=== PATIENT | male | born 1980 | race Caucasian/White ===

== ENCOUNTER 2020-10-09 00:45 | Emergency (ER) | payer MEDICAID ==
[2020-10-09] MEDS ORDERED: Lidocaine 1% 30 ML SDV INJECT ONE (01:57)
[2020-10-09] MEDS ORDERED: Bacitracin Oint 1 GM U/D Packet TOP ONE (01:58)
--- NOTE | 2020-10-09 02:21 | EDM.PDOC ---
ED HPI GENERAL MEDICAL PROBLEM - General Chief Complaint: Laceration Stated Complaint: RIGHT POINTER FINGER SLICED FINGER Time Seen by Provider: 10/09/20 01:50 Source of Information: Reports: Patient, RN History Limitations: Reports: No Limitations - History of Present Illness INITIAL COMMENTS - FREE TEXT/NARRATIVE: ED with report of laceration to left index finger, cut on Nima jar that broke doing dishes [employer]. Treatments [employer]: Reports: Dressing(s) Right Lower Finger-Index Pain Score (Numeric/FACES): 5 - Related Data Allergies Allergy/AdvReac Type Severity Reaction Status Date / Time benzonatate Allergy Nausea Verified 10/09/20 01:45 [From Tesyun Cardoza] Penicillins Allergy Cannot Verified 10/09/20 01:45 Remember Home Meds: Home Meds ALPRAZolam [Alprazolam] 0.5 mg PO BID PRN 11/04/15 [History] Albuterol [Ventolin HFA] 8 gm INH Q2H PRN 11/04/15 [History] PARoxetine [Paxil] 25 mg PO DAILY 11/04/15 [History] Past Medical History - Past Health History Medical/Surgical History: Denies Medical/Surgical History Other Cardiovascular History: Was seen at clinic 2 weeks ago for same symptoms. Gastrointestinal History: Reports: None Musculoskeletal History: Reports: Fracture, Other (See Below) Other Musculoskeletal History: Foot injury in the past; 2010 Psychiatric History: Reports: Addiction, Anxiety - Infectious Disease History Infectious Disease History: Reports: Chicken Pox - Past Surgical History GI Surgical History: Reports: Hernia Repair/Other Social & Family History - Family History Family Medical History: No Pertinent Family History - Tobacco Use Tobacco Use Status *Q: Current Every Day Tobacco User Years of Tobacco use: 23 Packs/Tins Daily: 0.5 Second Hand Smoke Exposure: Yes - Caffeine Use Caffeine Use: Reports: Coffee, Soda - Recreational Drug Use Recreational Drug Use: Yes Recreational Drug Type: Reports: Benzodiazepines, Marijuana/Hashish Recreational Drug Use Frequency: Daily - Living Situation & Occupation Living situation: Reports: with Significant Other Occupation: Employed ED ROS GENERAL - Review of Systems Review Of Systems: Comprehensive ROS is negative, except as noted in HPI. ED EXAM, SKIN/RASH Exam: See Below Exam Limited By: Language Barrier General Appearance: Alert, Anxious, Mild Distress, Thin Eye Exam: Bilateral Eye: EOMI Ears: Normal External Exam Neck: Full Range of Motion Respiratory/Chest: No Respiratory Distress, Normal Breath Sounds Cardiovascular: Regular Rate, Rhythm Neurological: Alert, Oriented, Normal Cognition Psychiatric: Normal Affect Skin: Wound/Incision (left index finger, distal plalmar surface) ED SKIN PROCEDURES - Laceration/Wound Repair Left Distal Digit - 2nd (Index) Appearance: Superficial, Linear, Clean Distal NVT: Neuro & Vascular Intact Anesthetic Type: Local Local Anesthesia - Lidocaine (Xylocaine): 1% Plain Local Anesthetic Volume: 1cc Skin Prep: Chlorhexidine (Hibiciens) Closed with: Sutures Lac/Wound length In cm: 1 Suture Size: 4-0 # of Sutures: 3 Sterile Dressing Applied: Nurse Tetanus Status Addressed: Yes Complications: No Course - Orders/Labs/Meds Meds: Medications Discontinued Medications Generic Name Dose Route Start Last Admin Trade Name Freq PRN Reason Stop Dose Admin Bacitracin 1 dose 10/09/20 01:58 10/09/20 02:07 Bacitracin Oint 1 Gm TOP 10/09/20 01:59 1 dose ONETIME ONE Administration Lidocaine HCl 30 ml 10/09/20 01:57 10/09/20 02:07 Xylocaine-Mpf 1% INJECT 10/09/20 01:58 30 ml ONETIME ONE Administration Departure - Departure Time of Disposition: 02:18 Disposition: Home, Self-Care 01 Condition: Good Clinical Impression: Laceration - Discharge Information *PRESCRIPTION DRUG MONITORING PROGRAM REVIEWED*: No *COPY OF PRESCRIPTION DRUG MONITORING REPORT IN PATIENT ZOYA: No Instructions: Laceration Care, Adult, [id number] Referrals: PCP,None [Primary Care Provider] - Forms: ED Department Discharge Additional Instructions: keep clean and dry, covered with dressing tylenol 650mg every 4 hours as needed for discomfort suture removal 10-14 days follow up if redness swelling or drainage from wound
== END 2020-10-09 02:25 | disposition home or self-care (01) ==
LOC: DL.ED 00:45
DX: S61.211A Laceration without foreign body of left index finger without damage to nail, initial encounter (principal); Z88.8 Allergy status to other drugs, medicaments and biological substances; Z88.0 Allergy status to penicillin; Z79.899 Other long term (current) drug therapy; Z72.0 Tobacco use; W26.8XXA Contact with other sharp object(s), not elsewhere classified, initial encounter
CPT/HCPCS: 12001; 99282-25; J2001